=== PATIENT | female | born 1960 | race Caucasian/White ===

== ENCOUNTER 2017-07-02 14:38 | Inpatient (IN) | payer OTHER ==
--- NOTE | 2017-07-02 16:32 | EDPHY ---
H & P Stated Complaint: Had 2 "disconnected spells" in past sevral weeks;sent here for eval Time Seen by Provider: 07/02/17 16:32 - Personal History Current Tetanus Diphtheria and Acellular Pertussis (TDAP): Yes - Medical/Surgical History Other PMH: TBI - Social History Smoking Status: Never smoked Constitutional: Initial Vital Signs Temperature (C) 37.1 C 07/02/17 14:39 Heart Rate 83 07/02/17 14:39 Respiratory Rate 18 07/02/17 14:39 Blood Pressure 147/79 H 07/02/17 14:39 O2 Sat (%) 96 07/02/17 14:39 O2 Delivery Mode Room Air Allergies/Adverse Reactions: Sulfa (Sulfonamide Antibiotics) Allergy (Unknown, Verified 07/02/17 14:45) Home Medications: Medication Instructions Recorded Escitalopram Oxalate [Lexapro 10 07/02/17 MG] Lisinopril [Zestril 20 mg (*)] 20 mg PO 07/02/17 buPROPion [Wellbutrin] 100 mg PO 07/02/17 Medical Decision Making - Diagnostics Imaging Results: Imaging Impressions Head CT 07/02/17 16:44 Impression: 1. No evidence for acute intracranial abnormality. 2. 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 Results called and discussed with Asim Abreu MD, at 1731 hours 02 July 2017. Imaging: Discussed imaging studies w/ yard caller Radiologist, I viewed and interpreted images myself ED Course/Re-evaluation: CHIEF COMPLAINT: Episodes of decreased responsiveness HISTORY OF PRESENT ILLNESS: The patient is a non-verbal 56 y/o female with a history of TBI arriving with her family at the referral of Dr. Tolliver for evaluation of two episodes of lethargy and decreased responsiveness over the past few weeks. During one episode she was communicating with her family member via online chat and stopped responding to the chat for a while and when she finally responded she described feeling dizzy. These symptoms resolved spontaneously. She did fall and hit her head one week ago and suffered a right parietoccipital laceration that required lisa. History obtained primarily from patient's family member. REVIEW OF SYSTEMS: A 10 point review of systems was performed and is negative with the exception of the elements mentioned in the history of present illness. PHYSICAL EXAM: HR, BP, O2 Sat, RR. Temp noted General Appearance: Alert, well hydrated, appropriate, and non-toxic appearing. Head: Atraumatic without scalp tenderness or obvious acute injury. Well-healed laceration on back of head with lisa in place. Eyes: Pupils equal, round, reactive to light and accommodation, EOMI, no trauma , no injection. Nose: Atraumatic, no rhinorrhea, clear. Throat: Mucus membranes moist. Neck: Supple,nontender, no lymphadenopathy. Respiratory: No retractions, no distress, no wheezes, and no accessory muscle use. Lungs are clear to auscultation bilaterally. Cardiovascular: Regular rate and rhythm, no murmurs, rubs, or gallops. Good capillary refill all extremities. Gastrointestinal: Abdomen is soft, nontender, non-distended, no masses, no rebound, no guarding, no peritoneal signs. Musculoskeletal: Normal active ROM of all extremities, atraumatic. Neurological: Alert, appropriate, and interactive, non-verbal at baseline. The patient has non-focal neuro exam. Skin: No rashes, good turgor, no nodules on palpation. Past medical history: TBI Past surgical history: noncontributory Family history: noncontributory Social history: Non-verbal. Able to communicate via typing. Family at bedside. DIAGNOSTICS/PROCEDURES/CRITICAL CARE TIME: Head CT: negative for acute process DIFFERENTIAL DIAGNOSIS: The differential diagnosis for the patient's symptoms included but was not limited to hypoglycemia, infectious process, electrolyte abnormality, head injury, neurologic process, anemia, cardiac process, and intoxicants. MEDICAL DECISION MAKING: This is a 56 y/o female with a history of a TBI who presents for evaluation following two episodes of decreased responsiveness and dizziness according to her family in the last two weeks. Her exam is unremarkable. Plan for head CT, basic labs, and UA. Head CT negative for acute process. Patient is hyponatremic at 124 and hypochloremic at 89 and will require admission for this. Reassessed patient and discussed results with her and her family. They agree with plan for admission. Spoke with hospitalist service. Dr. Lorenzo accepts admission. - Data Points Laboratory Results: Laboratory Results 07/02/17 17:27 07/02/17 17:27 07/02/17 07/02/17 17:27 17:27 WBC REJ RBC Not Reported Hgb Not Reported Hct Not Reported MCV Not Reported MCH Not Reported MCHC Not Reported RDW Not Reported Plt Count Not Reported MPV Not Reported Neut % (Auto) Not Reported Lymph % (Auto) Not Reported Mineral % (Auto) Not Reported Eos % (Auto) Not Reported Baso % (Auto) Not Reported Nucleat RBC Rel Count Not Reported Absolute Neuts (auto) Not Reported Absolute Lymphs (auto) Not Reported Absolute Monos (auto) Not Reported Absolute Eos (auto) Not Reported Absolute Basos (auto) Not Reported Absolute Nucleated RBC Not Reported Immature Gran % Not Reported Immature Gran # Not Reported Sodium 124 mEq/L L mEq/L (134-144) Potassium 4.5 mEq/L mEq/L (3.5-5.2) Chloride 89 mEq/L L mEq/L (97-110) Carbon Dioxide 21 mEq/l L mEq/l (22-31) Anion Gap 14 mEq/L mEq/L (8-16) BUN 9 mg/dL mg/dL (7-23) Creatinine 0.5 mg/dL L mg/dL (0.6-1.0) Estimated GFR > 60 Glucose 85 mg/dL mg/dL (70-100) Calcium 9.6 mg/dL mg/dL (8.5-10.4) Specimen Hemolysis 102 Departure - Departure Disposition: [facility] Inpatient Acute Clinical Impression: Hyponatremia, Hypochloremia Altered mental status Qualifiers: Altered mental status type: unspecified Qualified Code(s): R41.82 - Altered mental status, unspecified Condition: Fair Referrals: NONE *PRIMARY CARE P,. [Primary Care Provider] - As per Instructions Report Scribed for: Asim Abreu Report Scribed by: Swetha Rizo Date of Report: 07/02/17 Time of Report: 16:53
[2017-07-02 18:04] LABS: ANION GAP 14 mEq/L (8-16); CALCIUM 9.6 mg/dL (8.5-10.4); CARBON DIOXIDE 21 mEq/l (22-31); CHLORIDE 89 mEq/L (97-110); CREATININE 0.5 mg/dL (0.6-1.0); GLOMERULAR FILTRATION RATE > 60; GLUCOSE 85 mg/dL (70-100); POTASSIUM 4.5 mEq/L (3.5-5.2); SODIUM 124 mEq/L (134-144); SPECIMEN HEMOLYSIS 102
[2017-07-02 18:54] LABS: % IMMATURE GRANULYOCYTES 0.3 % (0.0-1.1); ABSOLUTE IMMATURE GRANULOCYTES 0.02 10^3/uL (0.00-0.10); ADD DIFF? NO; ADD MORPH? NO; ADD SCAN? NO; ATYPICAL LYMPHOCYTE FLAG 10 (0-99); FRAGMENT RBC FLAG 0 (0-99); HEMATOCRIT 37.1 % (38.0-47.0); HEMOGLOBIN 13.4 g/dL (12.6-16.3); LEFT SHIFT FLG 0 (0-99); LIPEMIA HEMOLYSIS FLAG 90 (0-99); MEAN CELL HEMOGLOBIN 30.9 pg (27.9-34.1); MEAN CELL HEMOGLOBIN CONCENTR. 36.1 g/dL (32.4-36.7); MEAN CELL VOLUME 85.5 fL (81.5-99.8); MEAN PLATELET VOLUME 8.5 fL (8.7-11.7); PLATELET CLUMPS FLAG 0 (0-99); PLATELET COUNT 342 10^3/uL (150-400); RED BLOOD CELL COUNT 4.34 10^6/uL (4.18-5.33); RED CELL DISTRIBUTION WIDTH 12.3 % (11.5-15.2)
[2017-07-02 19:51] LABS: COLOR YELLOW; LEUKOCYTE ESTERASE,URINE NEGATIVE (NEGATIVE); NITRITE,URINE NEGATIVE (NEGATIVE)
[2017-07-02] MEDS ORDERED: ONDANSETRON 4 MG/2 ML VIAL IVP PRN (20:24)
[2017-07-02] MEDS ORDERED: ACETAMINOPHEN 325 MG TAB PO PRN (20:24)
[2017-07-02] MEDS ORDERED: ONDANSETRON DISINTEGRATING 4 MG TAB PO PRN (20:24)
[2017-07-02] MEDS: buPROPion 100 MG TAB PO SCH (21:10)
--- NOTE | 2017-07-02 21:34 | GHP ---
[f rep st] HISTORY AND PHYSICAL DATE OF ADMISSION: 07/02/2017 This patient is a pleasant 56-year-old female with history of traumatic brain injury 25 years ago, wh o presents to the emergency department with a couple of episodes of confusion, that sounded like sort of being spacey and not quite there. She is nonverbal at baseline. She was referred here by Dr. Sage, who knows her very well from an inpatient stay 25 years ago as well as over the last few wee ks. During 1 episode, she was communicating with her family via an online chat, and stopped respondi ng to the chat for a while, and then she finally responded. She described feeling dizzy. She fell a nd hit her head a week ago, and suffered a right parietal occipital laceration requiring lisa, whi ch have subsequently been removed. Regarding her eating, it sounds like she drinks water through a G-tube, but eats regular meals about 1 per day, and then drinks Boost throughout the day. She does not drink water otherwise. Medication s include hydrochlorothiazide as a blood pressure medicine, bupropion, and Lexapro; none of these are not new. She has had maybe 1 episode of diarrhea. She does not have excessive urination. She is t aking no other medications. She has no prior history of hyponatremia. There is no fever or chills. REVIEW OF SYSTEMS: Complete 10-point review of systems conducted. Negative, except as noted in the HPI. PAST MEDICAL HISTORY: 1. Hypertension. 2. Traumatic brain injury, subsequently nonverbal. 3. Depression. ALLERGIES: Sulfa. MEDICATIONS: Lisinopril/hydrochlorothiazide. The hydrochlorothiazide part is 12.5 mg. Tylenol, bup ropion, Lexapro, multivitamin. SOCIAL HISTORY: She lives in an apartment. She does not smoke or drink. FAMILY HISTORY: Parents are healthy and at the bedside. PHYSICAL EXAMINATION: VITAL SIGNS: Temp 37.1, blood pressure 147/79, pulse 83, breathing 18 times a minute, 96% on room air. GENERAL: No acute distress. Alert. HEENT: Sclerae anicteric. Orophary nx clear. Mucous membranes are moist. NECK: Supple without lymphadenopathy or JVD. LUNGS: Clear to auscultation bilaterally. HEART: S1, S2. ABDOMEN: Soft, nontender, nondistended. Her G-tube i s clean, dry, and intact. There is a little bit of ooze around it, but there is no purulence, no jose thema. It is nontender. There is no odor. LOWER EXTREMITIES: Without edema. Calves are nontender . SKIN: Without rash. NEUROLOGIC: Exam is nonfocal. DIAGNOSTIC STUDIES: Noncontrast head CT shows no evidence for intracranial abnormality. Prominent l ateral ventricles and thinning of the corpus callosum could be congenital dysgenesis of the corpus ca llosum. There is no prior for comparison. Labs showed sodium 124, potassium 4.5, chloride of 89, bicarb 21, BUN of 9, creatinine 0.5, glucose 8 5. Calcium 9.6. UA shows 3-5 red cells, otherwise unremarkable. White count of 6, hematocrit 37, p latelets are 342,000. Discussed the case with Dr. Asim Abreu. ASSESSMENT AND PLAN: 56-year-old female presents with a couple episodes of confusion, and incidental ly-discovered hyponatremia. 1. Hyponatremia. It is not clear that it is causative for her episodes. However, her nonverbal sta tus does limit the history, although she is alert and able to participate in conversation and her par ents were there present. 2. The patient is euvolemic. She appears to have adequate salt intake and does not have excessive w ater intake. I do wonder about her hydrochlorothiazide, which I have elected to hold, I will send u rinalysis and urine sodium, and follow. I will fluid restrict to 2 L, and follow. Certainly the pat ient is not encephalopathic, as best I can tell. 3. Hypertension. We will continue lisinopril alone. I think this may represent a reasonable indica tion for permanent discontinuation of the hydrochlorothiazide, although it is not clear that it is ca usative. 4. Traumatic brain injury. She appears to be at her baseline. 5. Hypochloremia. This is consistent with her hyponatremia. 6. Disposition: Inpatient status, med/surg. /[id number]/MODL
--- NOTE | 2017-07-02 21:55 | PDMN ---
Medical Necessity Medical necessity: C/M review: Patient meets INPT criteria under [facility] Systemic or infectious disease GRG; Acute new hyponatremia, Na 124, hypochloremia, Cl 89 , patient euvolemic, serum osmolality 261, urine osmolality 256, couple episodes of confusion- all of unclear etiology requiring close monitoring, 2L fluid restriction, acute inpt OT, comorbid hypertension, depression, history traumatic brain injury 25 yrs ago - patient subsequently nonverbal. MD anticipates > 2 MN LOS for ongoing med nec for eval and TX of above. Patient is Medicare Advantage which follows guidelines [facility] puts forth.
[2017-07-03 05:46] LABS: ANION GAP 12 mEq/L (8-16); CALCIUM 9.6 mg/dL (8.5-10.4); CARBON DIOXIDE 26 mEq/l (22-31); CHLORIDE 93 mEq/L (97-110); CREATININE 0.5 mg/dL (0.6-1.0); GLOMERULAR FILTRATION RATE > 60; GLUCOSE 88 mg/dL (70-100); POTASSIUM 3.9 mEq/L (3.5-5.2); SODIUM 131 mEq/L (134-144)
[2017-07-03] MEDS ORDERED: Herbals/Supplements -Info Only PO SCH (09:00)
[2017-07-03] MEDS: ACETAMINOPHEN 500 MG TAB PO SCH (09:36)
[2017-07-03] MEDS: MULTIVITAMINS 1 EACH TAB PO SCH (09:36)
[2017-07-03] MEDS: ESCITALOPRAM OXALATE 10 MG TAB PO SCH (09:36)
[2017-07-03] MEDS: LISINOPRIL 20 MG TAB PO SCH (09:36)
[2017-07-03] MEDS: ENOXAPARIN 40 MG/0.4 ML SYR SC SCH (09:36)
--- NOTE | 2017-07-03 14:54 | HOSPPROG ---
Hospitalist Progress Note Assessment/Plan: 56 yo F w remote TBI here w mild hyponatremia hyponatremia: improved unclear how much this mild hyponatremia played a role in this presentation permanent dc of hctz suicidal gesture: i dont think she is actively suicidal but not entirely [place] for safety TLC eval medially cleared proph: add LMWh htn: lisinopril Subjective: 35' spent at bedside discussing recent ingestion of 9 buproprion Objective: Vital Signs Temp Pulse Resp BP Pulse Ox 37.1 C 92 18 110/62 93 07/03/17 12:00 07/03/17 12:00 07/03/17 12:00 07/03/17 12:00 07/03/17 12:00 Laboratory Results 07/03/17 05:18 07/02/17 07/03/17 07/04/17 05:59 05:59 05:59 Intake Total 0 0 Output Total 1000 Balance 0 -1000 - Physical Exam Constitutional: no apparent distress, appears nourished Eyes: PERRL, anicteric sclera Ears, Nose, Mouth, Throat: moist mucous membranes, hearing normal Cardiovascular: regular rate and rhythym, no murmur, rub, or gallop Respiratory: no respiratory distress, no rales or rhonchi Gastrointestinal: normoactive bowel sounds, soft, non-tender abdomen Genitourinary: no bladder fullness, No franz in urethra Skin: warm, normal color Musculoskeletal: full muscle strength, no muscle tenderness Neurologic: AAOx3 Psychiatric: interacting appropriately ICD10 Worksheet Patient Problems: Problems Problem Status Onset Altered mental status Acute Hypochloremia Acute Hyponatremia Acute
--- NOTE | 2017-07-03 16:34 | ASMTCMCOM ---
CM Note CM Note Notes: Pt in for hyponatremia and lethargy, has a hx of a tbi, is non verbal, but is able to communicate. She lives independently in an apartment which is ADA accessible, she uses [employer] for transportation, mother does grocery shopping for her and parents check on her daily. There is question of suicidal gesture and a consult with [facility] has been ordered and confirmed. Per OT who worked with pt and spoke with parents pt is at [facility] but she recommend homecare for a safety eval, PT still pending, CM w/f. Date Signed: 07/03/2017 04:33 PM Electronically Signed By:Helen Voss RN
[2017-07-03] MEDS: buPROPion 100 MG TAB PO SCH (20:33)
[2017-07-04 05:47] LABS: ANION GAP 13 mEq/L (8-16); CALCIUM 9.9 mg/dL (8.5-10.4); CARBON DIOXIDE 28 mEq/l (22-31); CHLORIDE 98 mEq/L (97-110); CREATININE 0.6 mg/dL (0.6-1.0); GLOMERULAR FILTRATION RATE > 60; GLUCOSE 99 mg/dL (70-100); POTASSIUM 3.9 mEq/L (3.5-5.2); SODIUM 139 mEq/L (134-144)
[2017-07-04] MEDS: MULTIVITAMINS 1 EACH TAB PO SCH (09:58)
[2017-07-04] MEDS: ACETAMINOPHEN 500 MG TAB PO SCH (09:58)
[2017-07-04] MEDS: ESCITALOPRAM OXALATE 10 MG TAB PO SCH (09:58)
[2017-07-04] MEDS: ENOXAPARIN 40 MG/0.4 ML SYR SC SCH (09:58)
[2017-07-04] MEDS: LISINOPRIL 20 MG TAB PO SCH (09:59)
[2017-07-04 12:05] VITALS: RESP 16
[2017-07-04 15:09] VITALS: BP 101/61; PULSE 102; TEMP 98.3; O2SAT 94
--- NOTE | 2017-07-04 15:47 | HOSPPROG ---
Hospitalist Progress Note Assessment/Plan: 56 yo F w remote TBI here w mild hyponatremia hyponatremia: improved unclear how much this mild hyponatremia played a role in this presentation permanent dc of hctz suicidal gesture: i dont think she is actively suicidal but not entirely [place] for safety TLC eval medially cleared proph: add LMWh htn: lisinopril home today >30 minutes Subjective: TLC felt not suicidal Objective: Vital Signs Temp Pulse Resp BP Pulse Ox 36.8 C 102 H 16 101/61 94 07/04/17 15:06 07/04/17 15:06 07/04/17 15:06 07/04/17 15:06 07/04/17 15:06 Laboratory Results 07/04/17 05:09 07/03/17 07/04/17 07/05/17 05:59 05:59 05:59 Intake Total 0 950 Output Total 1300 Balance 0 -350 - Physical Exam Constitutional: no apparent distress, appears nourished Eyes: PERRL, anicteric sclera Ears, Nose, Mouth, Throat: moist mucous membranes, hearing normal Cardiovascular: regular rate and rhythym, no murmur, rub, or gallop Respiratory: no respiratory distress, no rales or rhonchi Gastrointestinal: normoactive bowel sounds, soft, non-tender abdomen Genitourinary: no bladder fullness, No franz in urethra Skin: warm, normal color Musculoskeletal: full muscle strength Neurologic: AAOx3 ICD10 Worksheet Patient Problems: Problems Problem Status Onset Altered mental status Acute Hypochloremia Acute Hyponatremia Acute
--- NOTE | 2017-07-04 16:18 | GDS ---
[f rep st] DISCHARGE SUMMARY DISCHARGE DIAGNOSES: 1. Hyponatremia of uncertain etiology, suspect hydrochlorothiazide. 2. Depression. 3. Suicidal ideation without pierre suicidality. 4. History of traumatic brain injury. Please see admission history and physical by Dr. Tu Lorenzo. HOSPITAL COURSE: The patient presented with confusion, found to have a sodium of 124. It sounds lik e she had a previous episode of taking 9 of her Wellbutrin. She was not sure why she did this. She denied suicidality. She was seen by [facility], who conferred that she was not suicidal. Without intervent ion her sodium trended up from 124 to 139. She does not have excess free water intake. Her hydrochl orothiazide was discontinued. She was discharged to home. Her parents participated in the discharge planning. /[id number]/MODL
--- NOTE | 2017-07-04 17:24 | ASMTCMCOM ---
CM Note CM Note Notes: Rec'd call from Sarah from [facility] who said that Dulce Maria from [facility] had evaluated pt last night and cleared her to dc home and recommended a follow up social work visit at home; this CM informed Dr Lorenzo of this. Also discussed w/pt and parents who are very involved with her care. They were apprehensive to have SW visit; they did not feel it was necessary and that it may be upsetting to her. I discussed this w/Dr Schuler was ok with them declining the SW visit. Pt dc'd home, parents very involved and supportive. Date Signed: 07/04/2017 05:24 PM Electronically Signed By:Lori Bah RN
--- NOTE | 2017-07-04 17:25 | ASDISCHSUM ---
Discharge Information Plan Status:Home with No Needs Medically Cleared to Leave: Discharge Date:07/04/2017 04:04 PM CM D/C Disposition:Home, Routine, Self-Care ADT D/C Disposition:Home, Routine, Self-Care Projected Discharge Date:07/04/2017 04:04 PM Transportation at D/C: Discharge Delay Reason: Follow-Up Date:07/04/2017 04:04 PM Discharge Slot: Final Diagnosis: Placement Information Patient Contact Information Contact Name:MARISSA DUQUE Relationship:Mother Address:[address] Work Phone: City:[facility] Phone: [facility]/Zip Code:[place] [address] Email: Financial Information Financial Class:Medicare Advantage Plans Primary Plan Desc:[employer] MEDICARE Primary Plan Number:[id number] Secondary Plan Desc: Secondary Plan Number: Assessment Information [facility] CM Progress Note CM Note CM Note Notes: Pt in for hyponatremia and lethargy, has a hx of a tbi, is non verbal, but is able to communicate. She lives independently in an apartment which is ADA accessible, she uses [employer] for transportation, mother does grocery shopping for her and parents check on her daily. There is question of suicidal gesture and a consult with [facility] has been ordered and confirmed. Per OT who worked with pt and spoke with parents pt is at [facility] but she recommend homecare for a safety eval, PT still pending, CM w/f. Date Signed: 07/03/2017 04:33 PM Electronically Signed By:Helen Voss RN [facility] CM Progress Note CM Note CM Note Notes: Rec'd call from Sarah from [facility] who said that Dulce Maria from [facility] had evaluated pt last night and cleared her to tx home and recommended a follow up social work visit at home; this CM informed Dr Lorenzo of this. Also discussed w/pt and parents who are very involved with her care. They were apprehensive to have SW visit; they did not feel it was necessary and that it may be upsetting to her. I discussed this w/Dr Schuler was ok with them declining the SW visit. Pt dc'd home, parents very involved and supportive. Date Signed: 07/04/2017 05:24 PM Electronically Signed By:Lori Bah RN Intervention Information
== END 2017-07-04 16:04 | disposition home or self-care (01) | DRG 641 ==
LOC: OBSVTOIN 19:51 → F3E 20:46
PROVIDERS: ADMIT Internal Medicine; ATTEND Internal Medicine
DX: E87.1 Hypo-osmolality and hyponatremia (principal); R45.851 Suicidal ideations; F32.9 Major depressive disorder, single episode, unspecified; Z87.820 Personal history of traumatic brain injury; I10 Essential (primary) hypertension
CPT/HCPCS: 84588-90; 92610-GN; 97162-GP; 97166-GO; 97535-GO; J1650